=== PATIENT | male | born 1945 | race Caucasian/White ===

== ENCOUNTER 2021-12-29 11:34 | Outpatient (CLI) | payer MEDICARE ==
[2021-12-29] MEDS ORDERED: Iopamidol 370 76% 100 ML VIAL ONE (12:57)
== END 2021-12-29 11:35 | disposition home or self-care (01) ==
LOC: CT 11:34
PROVIDERS: ATTEND Otolaryngology Plastic Surgery within the Head & Neck
DX: H91.23 Sudden idiopathic hearing loss, bilateral (principal)
CPT/HCPCS: 70470; 70480; 82565; Q9967